=== PATIENT | female | born 1970 | race Caucasian/White ===

== ENCOUNTER 2016-12-25 16:07 | Emergency (ER) | payer OTHER ==
[2016-12-25 16:16] VITALS: BP 125/61
[2016-12-25] MEDS ORDERED: Albuterol 2.5 MG/3 ML NEB.SOL* (0.083%) INH ONE ×2 (16:28→17:09)
[2016-12-25] MEDS ORDERED: Ipratropium 0.5MG/2.5ML NEB* 0.5 MG/2.5 ML NEB.SOLN INH ONE (16:28)
--- NOTE | 2016-12-25 16:41 | UC ---
Respiratory Complaint HPI - HPI Summary HPI Summary: 46 yo female ill for about 7-10 days started with sinus pressure and pain (which has persisted) has since moved into chest with frequent cough and wheezing smoker hx of bronchitis and pneumonia has used nebs in past has felt feverish - History of Current Complaint Chief Complaint: UCRespiratory Stated Complaint: SINUS/SHORTNESS OF BREATH Time Seen by Provider: 12/25/16 16:13 Hx Obtained From: Patient Hx Last Menstrual Period: 12/22/16 Onset/Duration: Gradual Onset, Lasting Days Timing: Constant Severity Initially: Mild Severity Currently: Moderate Pain Intensity: 3 Pain Scale Used: 0-10 Numeric Character: Cough: Nonproductive Aggravating Factors: Deep Breaths, Recumbent Position Alleviating Factors: Nothing Associated Signs And Symptoms: Positive: Dyspnea, Fever - nancy, Chills, Nasal Congestion, Hoarseness, Sinus Discomfort - Allergies/Home Medications Allergies/Adverse Reactions: Allergies Allergy/AdvReac Type Severity Reaction Status Date / Time Sulfa Antibiotics Allergy Runny Nose Verified 12/25/16 16:16 Home Medications: Home Medications Conjugated Estrogens TAB* [Premarin TAB*] 0.3 mg PO DAILY 12/25/16 [History Confirmed 12/25/16] PMH/Surg Hx/FS Hx/Imm Hx Previously Healthy: Yes Respiratory History: Bronchitis, Pneumonia - Surgical History Surgical History: Yes Surgery Procedure, Year, and Place: fibroid tumor. d & c. removal/laser surg for vulvar cancer. LITHOTRYPSY - Family History Known Family History: Positive: Cardiac Disease, Other - colo CA, skin CA, lung CA - great grandfather - Social History Alcohol Use: Occasionally Substance Use Type: None Smoking Status (MU): Heavy Every Day Tobacco Smoker Type: Cigarettes Amount Used/How Often: 1/2 -- 1 PPD Length of Time of Smoking/Using Tobacco: 34 Years Have You Smoked in the Last Year: Yes - Immunization History Most Recent Influenza Vaccination: Not the Season Review of Systems Constitutional: Fever - nancy, Chills, Fatigue Skin: Negative Eyes: Negative ENT: Dental Pain, Nasal Discharge Respiratory: Shortness Of Breath, Cough Cardiovascular: Negative Gastrointestinal: Negative Genitourinary: Negative Motor: Negative Neurovascular: Negative Musculoskeletal: Myalgia Neurological: Negative Psychological: Negative All Other Systems Reviewed And Are Negative: Yes Physical Exam Triage Information Reviewed: Yes Appearance: Well-Appearing, No Pain Distress, Well-Nourished Vital Signs: Initial Vital Signs Temp 98.3 F 12/25/16 16:11 Pulse 84 12/25/16 16:11 Resp 16 12/25/16 16:11 BP 125/61 12/25/16 16:11 Pulse Ox 96 12/25/16 16:11 Vital Signs Reviewed: Yes Eyes: Positive: Conjunctiva Clear ENT: Positive: Hearing grossly normal, Nasal congestion, Nasal drainage, TMs normal, Other: - bilateral max sinus tenderness. Negative: Tonsillar swelling, Tonsillar exudate, Trismus, Muffled/hoarse voice Dental Exam: Normal Neck: Positive: Supple, Nontender, No Lymphadenopathy Respiratory: Positive: No respiratory distress, No accessory muscle use, Wheezing Cardiovascular: Positive: RRR, No Murmur Musculoskeletal: Positive: ROM Intact, No Edema Neurological: Positive: Alert Psychological Exam: Normal Skin Exam: Normal UC Diagnostic Evaluation - Laboratory O2 Sat by Pulse Oximetry: 96 - normal/not hypoxic - Radiology Xray Interpretation: No Acute Changes - chronic increased intersitial markings Radiology Interpretation Completed By: Radiologist Re-Evaluation - Re-Evaluation First Eval Re-Evaluation Time: 17:05 Change: Improved - states she can breath better/ on exam better air movement with rales RLL Second Eval Re-Evaluation Time: 17:50 Change: Improved Comment: lungs clear Respiratory Course/Dx - Differential Dx/Diagnosis Provider Diagnoses: acute bronchitis. tobacco use Discharge - Discharge Plan Condition: Stable Disposition: HOME Prescriptions: Amoxicillin PO (*) [Amoxicillin 875 MG (*)] 875 mg PO BID #20 tab Prednisone [Deltasone] 40 mg PO DAILY #10 tab Patient Education Materials: Acute Bronchitis (ED) Referrals: Vidhi Rose MD [Primary Care Provider] - 1 Week Additional Instructions: your chest XR as well as your Chest XR down in NOV show increased interstitial markings I think you should follow up with your MD next week to discuss if you need pulmonary function testing or other work up decrease or stop smoking
--- NOTE | 2016-12-25 17:32 | RAD ---
INDICATION: Cough. Short of breath COMPARISON: April 21, 2016 TECHNIQUE: PA and lateral dual-energy views were obtained. FINDINGS: Bones/Soft Tissues: There are no acute bony findings. Cardiomediastinal: The cardiomediastinal silhouette is normal. Lungs: There are no focal consolidative changes. There is a diffuse increase interstitial markings demonstrating an appearance similar to the April 21, 2016 examination. Pleura: There are no pleural effusions. Other: None IMPRESSION: DIFFUSE CHRONIC INTERSTITIAL CHANGES. NO ACUTE FINDINGS.
[2016-12-25] MEDS ORDERED: Albuterol HFA INHALER* 8 gm MDI INH ONE (17:50)
== END 2016-12-25 18:07 | disposition home or self-care (01) ==
LOC: UCCORT 16:07
DX: J20.9 Acute bronchitis, unspecified (principal); Z88.2 Allergy status to sulfonamides; F17.210 Nicotine dependence, cigarettes, uncomplicated
CPT/HCPCS: 71020; 99213; A9270-GY; G0463; J7644

== ENCOUNTER 2017-12-24 12:53 | Emergency (ER) | payer OTHER ==
[2017-12-24 14:03] VITALS: BP 129/63
--- NOTE | 2017-12-24 14:07 | UC ---
Shoulder Pain HPI - HPI Summary HPI Summary: 47 y/o female presents to the urgent care c/o Rt shoulder refugio and base of neck pain for the past week. Pt reports She was trying to lift something and then pain was triggered. She doesn't recall any injury to her Rt shoulder in the past. Pain is 8/10 w/ movement and 4/10 at rest associated w/ mild swelling over the joint. Pt has taking Tyelnol PO, ASA, and a pain medication her mother gave her last night to alleviate pain w/o any improvement. She hasn't been able to sleep well. Pt denies numbness or tingling sensation over the RT arm, SOB, chest pain, abdominal pain, N/V/D. - History of Current Complaint Chief Complaint: UCUpperExtremity Stated Complaint: RIGHT SHOULDER COMPLAINT Time Seen by Provider: 12/24/17 14:05 Hx Obtained From: Patient Hx Last Menstrual Period: 12/22/16 ?: No - Pt declines test She thinks she is menopausal Onset/Duration: Gradual Onset, Lasting Weeks - 1 week, Still Present Timing: Constant Severity Initially: Mild Severity Currently: Moderate Location Of Pain: Is Discrete @ - Rt shoulder Pain Intensity: 5 Pain Scale Used: 0-10 Numeric Character: Throbbing, Stiffness Aggravating Factor(s): Movement, Lifting, Flexion, Extension, External Rotation , Abduction Alleviating Factor(s): Rest, Ice, OTC Meds Associated Signs And Symptoms: Positive: Swelling - mild. Negative: Redness, Bruising, Fever, Numbness/Tingling Related History: Dominant Hand Right - Risk Factors Non-Orthopedic Risk Factor: Negative DVT Risk Factors: Negative Septic Arthritis Risk Factor: Negative - Allergies/Home Medications Allergies/Adverse Reactions: Allergies Allergy/AdvReac Type Severity Reaction Status Date / Time Sulfa (Sulfonamide Allergy Runny Nose Verified 12/24/17 13:55 Antibiotics) Home Medications: Home Medications Acetaminophen [Acetaminophen Extra Strength] 1,000 mg PO Q6H PRN 12/24/17 [ History Confirmed 12/24/17] PMH/Surg Hx/FS Hx/Imm Hx Previously Healthy: Yes Endocrine History: Hyperthyroidism - Graves Disease on remission - Surgical History Surgical History: Yes Surgery Procedure, Year, and Place: fibroid tumor. d & c. removal/laser surg for vulvar cancer. LITHOTRYPSY. ablation - Family History Known Family History: Positive: Cardiac Disease, Other - colon CA, skin CA, lung CA - great grandfather Family History: colon CA, skin CA, lung CA - great grandfather, Graves disease - Social History Occupation: Employed Full-time Lives: With Family Alcohol Use: Occasionally Substance Use Type: None Smoking Status (MU): Heavy Every Day Tobacco Smoker Type: Cigarettes Amount Used/How Often: 1 PPD Length of Time of Smoking/Using Tobacco: 34 Years Have You Smoked in the Last Year: Yes - Immunization History Most Recent Influenza Vaccination: Not the Season Review of Systems Constitutional: Negative Skin: Negative Eyes: Negative ENT: Negative Respiratory: Negative Cardiovascular: Negative Gastrointestinal: Negative Genitourinary: Negative Motor: Negative Neurovascular: Negative Musculoskeletal: Decreased ROM - RT shoulder, Other: - RT shoulder pain Neurological: Negative Psychological: Negative Is Patient Immunocompromised?: No All Other Systems Reviewed And Are Negative: Yes Physical Exam - Summary Physical Exam Summary: Vital Signs Reviewed: Yes General: well developed, well nourished obese female sitting in the examining table w/o any apparent distress, Eyes: Positive: Conjunctiva Clear - PERRLA, EOMI, fundi grossly normal ENT: Positive: Normal ENT inspection, Hearing grossly normal, Pharynx normal, TMs normal Neck: Positive: Supple, Nontender, No Lymphadenopathy Respiratory: Positive: Chest non-tender, Lungs clear, Normal breath sounds, No respiratory distress Cardiovascular: Positive: RRR, No Murmur, Pulses Normal, Brisk Capillary Refill Abdomen Description: Positive: Nontender, No Organomegaly, Soft. Negative: CVA Tenderness (R), CVA Tenderness (L) Bowel Sounds: Positive: Present Musculoskeletal: Positive: Strength Intact, RT shoulder: The R shoulder is without obvious asymmetry or deformity when compared to the L shoulder. No surface trauma, ecchymosis, crepitus. No bony deformity or prominence of humeral head. No erythema, warmth. tender to palpation over the clavicle,and over Acromioclavicular joint and humeral head with mild swelling, NT to palpation of the bicipital groove . NT to palpation of the muscles of the sternocleidomastoid, pectoralis, tenderness over biceps/triceps, deltoid, trapezius, . Limited ROM due to pain. "empty can and drop arm test unable to perform due to pain. No axillary tenderness or lymphadenopathy. Normal sensation over the deltoid and fingers. Distal motor and neurovascular status is intact. Neurological Exam: Normal Psychological Exam: Normal Skin Exam: Normal Triage Information Reviewed: Yes Vital Signs: Initial Vital Signs Temp 98.7 F 12/24/17 13:58 Pulse 87 12/24/17 13:58 Resp 16 12/24/17 13:58 BP 129/63 12/24/17 13:58 Pulse Ox 96 12/24/17 13:58 Shoulder Course/Dx - Course Course Of Treatment: 47 y/o female presents to the urgent care c/o Rt shoulder refugio and base of neck pain for the past week. Pt reports She was trying to lift something and then pain was triggered. She doesn't recall any injury to her Rt shoulder in the past. Pain is 8/10 w/ movement and 4/10 at rest associated w/ mild swelling over the joint. Pt has taking Tyelnol PO, ASA, and a pain medication her mother gave her last night to alleviate pain w/o any improvement. She hasn't been able to sleep well. Pt denies numbness or tingling sensation over the RT arm, SOB, chest pain, abdominal pain, N/V/D. Hx obtained. Pt w/ tenderness to palpation over the clavicle, over Acromioclavicular joint and humeral head with mild swelling w/ decrease ROM on examination Rt shoulder X-ray ordered: Impression:Mild Degenerative changes including slerotic changes over the glenoid labrum and ostephyte over the AC joint. No acute osseous injury observed as per radiologits. Pt given a Toradol IM inj for pain. Pt tolerated well medication and pain decrease. Pt's Rx Ibuprofen PO to alleviate symptoms. Shoulder immobilized with a shoulder sling for 3-4 days. Advised to f/u with PT referral for further evaluation and Orthopedic referral Dr Fuentes if not improvement of symptoms in 3 days for further management. - Differential Dx/Diagnosis Differential Diagnosis/HQI/PQRI: Arthritis, Contusion, Dislocation, Rotator Cuff Injury, Sprain, Strain, Tendonitis Provider Diagnoses: 1- Acute Rt shoulder pain. 2- RT shoulder Osteoarthritis Discharge - Sign-Out/Discharge Documenting (check all that apply): Patient Departure - D/C home - Discharge Plan Condition: Stable Disposition: HOME Prescriptions: Ibuprofen TAB* [Motrin TAB* 800 MG] 800 mg PO Q6H PRN #30 tab PRN Reason: shoulder pain Patient Education Materials: Osteoarthritis (ED) Referrals: Vidhi Rose MD [Primary Care Provider] - 1 Week Livan Fuentes MD [Medical Doctor] - 3 Days Additional Instructions: 1-Please take medications as directed to alleviate pain and swelling. 2-Please apply ice, keep your shoulder immobilized with the shoulder sling for 3-4 days and then resume movement slowly 3- Please f/u with Orthopedic Dr Fuentes if not improvement of symptoms for further evaluation and treatment. 4-Please F/U Physical Therapy referral for further evaluation. Per institutional requirements, I have reviewed the chart, however, I was not consulted specifically or made aware of this patient by the above midlevel provider. I did not personally evaluate, interact with , or disposition this patie - Billing Disposition and Condition Condition: STABLE Disposition: Home
[2017-12-24] MEDS ORDERED: Ketorolac INJ* 30 MG/ML 1 ML VIAL IM ONE (14:27)
--- NOTE | 2017-12-24 15:01 | RAD ---
INDICATION: Right shoulder pain COMPARISON: None. TECHNIQUE: 4 views of the right shoulder were obtained. FINDINGS: The adequately corticated bones are in normal alignment. Joint spaces appear maintained. Mild degenerative changes include mild sclerotic change of the bony glenoid labrum as well as trace osteophytes at the acromioclavicular joint. No fracture, dislocation or focal bony abnormality is seen. IMPRESSION: MILD DEGENERATIVE CHANGES DESCRIBED ABOVE WITHOUT RADIOGRAPHICALLY APPARENT FRACTURE OR DISLOCATION INVOLVING THE RIGHT SHOULDER. If the patient's symptoms persist, follow-up imaging is recommended.
== END 2017-12-24 15:31 | disposition home or self-care (01) ==
LOC: UCCORT 12:53
DX: M19.011 Primary osteoarthritis, right shoulder (principal); M25.511 Pain in right shoulder; M54.2 Cervicalgia; F17.210 Nicotine dependence, cigarettes, uncomplicated; Z79.4 Long term (current) use of insulin; Z88.2 Allergy status to sulfonamides
CPT/HCPCS: 96372; 99213; G0463; J1885

== ENCOUNTER 2018-11-14 16:30 | Emergency (ER) | payer BC, OTHER ==
[2018-11-14 16:50] VITALS: BP 115/69
--- NOTE | 2018-11-14 17:11 | ED ---
Throat Pain/Nasal Congestion - HPI Summary HPI Summary: 48 yr old female with the complaint of bilateral ear pain. Onset about two weeks ago. Pain is moderate to severe. No drainage. No fever or chills. No runny nose, no cough. - History of Current Complaint Chief Complaint: UCEar Time Seen by Provider: 11/14/18 16:54 - Allergies/Home Medications Allergies/Adverse Reactions: Allergies Allergy/AdvReac Type Severity Reaction Status Date / Time Sulfa (Sulfonamide Allergy Runny Nose Verified 11/14/18 16:44 Antibiotics) PMH/Surg Hx/FS Hx/Imm Hx - Cancer History Cancer Type, Location and Year: FIBROID TUMORS, VULVAR DYSPLASIA CA 7 YEARS AGO , UTERINE CATARIZATION 6 YEARS AGO(to reduce lining of uterus). KIDNEY STONE/ SEPSIS - Surgical History Surgery Procedure, Year, and Place: fibroid tumor. d & c. removal/laser surg for vulvar cancer. LITHOTRYPSY. ablation Infectious Disease History: No Infectious Disease History: Denies: Traveled Outside the [place] in Last 30 Days - Family History Known Family History: Positive: Cardiac Disease, Other - colon CA, skin CA, lung CA - great grandfather Family History: colon CA, skin CA, lung CA - great grandfather, Graves disease - Social History Occupation: Employed Full-time Lives: With Family Alcohol Use: Occasionally Substance Use Type: Reports: None Smoking Status (MU): Heavy Every Day Tobacco Smoker Type: Cigarettes Amount Used/How Often: 1 PPD Length of Time of Smoking/Using Tobacco: 37 Years Have You Smoked in the Last Year: Yes Review of Systems Constitutional: Negative Positive: Ear Ache All Other Systems Reviewed And Are Negative: Yes Physical Exam Triage Information Reviewed: Yes Vital Signs On Initial Exam: Initial Vitals Temp Pulse Resp BP Pulse Ox 98.4 F 75 18 115/69 96 11/14/18 16:46 11/14/18 16:46 11/14/18 16:46 11/14/18 16:46 11/14/18 16:46 Vital Signs Reviewed: Yes Appearance: Positive: Well-Appearing, No Pain Distress Skin: Positive: Warm, Skin Color Reflects Adequate Perfusion Head/Face: Positive: Normal Head/Face Inspection Eyes: Positive: EOMI, ROYER ENT: Positive: Pharynx normal, Nasal congestion, TM red - bilateral TM redness and retraction Neck: Positive: Nontender Respiratory/Lung Sounds: Positive: Clear to Auscultation, Breath Sounds Present Cardiovascular: Positive: RRR. Negative: Murmur Abdomen Description: Positive: Nontender. Negative: Distended Musculoskeletal: Positive: Strength/ROM Intact Neurological: Positive: Sensory/Motor Intact, Alert, Oriented to Person Place, Time, CN Intact II-III, Normal Gait, Speech Normal Psychiatric: Positive: Normal Diagnostics - Vital Signs Vital Signs Temp Pulse Resp BP Pulse Ox 11/14/18 16:46 98.4 F 75 18 115/69 96 - Laboratory Lab Statement: Any lab studies that have been ordered have been reviewed, and results considered in the medical decision making process. EENT Course/Dx - Course Course Of Treatment: 48 yr old with bilateral OM. Rx with augmentin - Diagnoses Provider Diagnoses: Otitis media of both ears Discharge - Sign-Out/Discharge Documenting (check all that apply): Patient Departure All imaging exams completed and their final reports reviewed: No Studies - Discharge Plan Condition: Good Disposition: HOME Prescriptions: Amoxicillin/Clavulanate TAB* [Augmentin TAB 875*] 875 mg PO BID #20 tab Patient Education Materials: Ear Infection (ED) Referrals: Vidhi Rose MD [Primary Care Provider] - 2 Days - Billing Disposition and Condition Condition: GOOD Disposition: Home
== END 2018-11-14 17:18 | disposition home or self-care (01) ==
LOC: UCCORT 16:30
DX: H66.93 Otitis media, unspecified, bilateral (principal); Z88.2 Allergy status to sulfonamides; F17.210 Nicotine dependence, cigarettes, uncomplicated
CPT/HCPCS: 99212; G0463